=== PATIENT | female | born 1970 | race Caucasian/White ===

== ENCOUNTER → 2017-11-05 | Outpatient (CLI) | payer OTHER ==
--- NOTE | 2017-11-05 19:48 | MR ---
EXAMINATION TYPE: MR shoulder RT wo con DATE OF EXAM: 11/05/2017 COMPARISON: Plain film 09/20/2017 HISTORY: Fell on Right Shoulder Sep 2017, Pt breathing heavy motion on scans TECHNIQUE: Multiplanar, multisequence imaging of the right shoulder is performed without contrast. FINDINGS: There is motion on the exam. Rotator Cuff: Some increased signal within the rotator cuff near its insertion may be due to tendinos is Acromioclavicular Joint: Hypertrophic changes present causing some mass effect on the musculotendinou s junction of supraspinatus Glenohumeral Joint: Intact. Labrum: The labrum appears grossly intact given limitation of non-arthrogram study. Biceps Tendon: The long head of biceps is in normal location within bicipital groove, some fluid is p resent along the tendon. Bone marrow signal: Pseudocysts are present within the humeral head. Other: There is a distal acromial spur present, distal acromion is downturned. Fluid signal present i n the subacromial subdeltoid bursa. IMPRESSION: There are limitations in exam due to motion, correlate for impingement. No ashley rotator cuff tear.
== END | disposition home or self-care (01) ==
LOC: RADMRIMAIN 18:54
PROVIDERS: ATTEND Orthopaedic Surgery
DX: M25.511 Pain in right shoulder (principal)

== ENCOUNTER 2021-01-14 18:47 | Emergency (ER) | payer BC ==
[2021-01-14 19:25] VITALS: TEMP 102.4
[2021-01-14] MEDS ORDERED: IBUPROFEN 800 MG TAB PO STA (19:55)
[2021-01-14] MEDS ORDERED: ACETAMINOPHEN TAB 500 MG TAB PO STA (19:55)
[2021-01-14] MEDS ORDERED: dexAMETHasone 2 MG TAB PO STA (19:55)
--- NOTE | 2021-01-14 20:30 | ED ---
Fever HPI - General Chief Complaint: Fever Stated Complaint: Covid+, EROS Time Seen by Provider: 01/14/21 19:55 Source: patient Mode of arrival: ambulatory Limitations: no limitations - History of Present Illness Initial Comments: Patient presents with a cough. She is covid positive. She has no chest or belly or back pain. She has no nausea or vomiting. She doesn't fever. She has no weakness. She has no lightheadedness. She has no dizziness. She has no neck pain or stiffness. She does not feel short of breath. She has no palpitations. She has no swelling in the arms or legs. - Related Data Allergies Allergy/AdvReac Type Severity Reaction Status Date / Time No Known Allergies Allergy Verified 01/14/21 19:24 Review of Systems ROS Statement: Those systems with pertinent positive or pertinent negative responses have been documented in the HPI. ROS Other: All systems not noted in ROS Statement are negative. Past Medical History Past Medical History: Diabetes Mellitus, Hypertension Additional Past Medical History / Comment(s): covid 01/26, ectopic-lt History of Any Multi-Drug Resistant Organisms: None Reported Past Surgical History: Tubal Ligation Past Psychological History: No Psychological Hx Reported Smoking Status: Never smoker Past Alcohol Use History: None Reported Past Drug Use History: None Reported General Exam Limitations: no limitations General appearance: alert, in no apparent distress Head exam: Present: atraumatic, normocephalic, normal inspection Eye exam: Present: normal appearance, PERRL, EOMI. Absent: scleral icterus, conjunctival injection, periorbital swelling ENT exam: Present: normal exam, mucous membranes moist Neck exam: Present: normal inspection. Absent: tenderness, meningismus, lymphadenopathy Respiratory exam: Present: normal lung sounds bilaterally. Absent: respiratory distress, wheezes, rales, rhonchi, stridor Cardiovascular Exam: Present: regular rate, normal rhythm, normal heart sounds. Absent: systolic murmur, diastolic murmur, rubs, gallop, clicks GI/Abdominal exam: Present: soft, normal bowel sounds. Absent: distended, tenderness, guarding, rebound, rigid Extremities exam: Present: normal inspection, full ROM, normal capillary refill. Absent: tenderness, pedal edema, joint swelling, calf tenderness Back exam: Present: normal inspection Neurological exam: Present: alert, oriented X3, CN II-XII intact Psychiatric exam: Present: normal affect, normal mood Skin exam: Present: warm, dry, intact, normal color. Absent: rash Course Vital Signs 01/14/21 19:21 Temperature 102.4 F H Pulse Rate 119 H Respiratory 22 Rate Blood Pressure 133/90 O2 Sat by Pulse 95 Oximetry Medical Decision Making - Medical Decision Making Patient presents with Covid. She is given Decadron and IV immunoglobulin therapy. Patient is feeling better. Her vital signs are improved. She is stable for discharge. Disposition Clinical Impression: COVID-19 Disposition: HOME SELF-CARE Condition: Good Instructions (If sedation given, give patient instructions): Coronavirus Disease 2019 (COVID-19) Is patient prescribed a controlled substance at d/c from ED?: No Referrals: Lu Gardiner DO [Primary Care Provider] - 1-2 days
--- NOTE | 2021-01-14 21:12 | XR ---
EXAMINATION TYPE: XR chest 2V DATE OF EXAM: 01/14/2021 COMPARISON: None INDICATION: Dyspnea short of breath headache fever TECHNIQUE: Frontal and lateral views of the chest are obtained. FINDINGS: The heart size is normal. The pulmonary vasculature is normal. Scattered mild bilateral lung infiltrates are present. These are nonspecific. Correlate for subsegmen joaquina atelectasis and atypical pneumonia.. IMPRESSION: 1. Nonspecific mild increase in diffuse lung markings, correlate for atypical pneumonia and subsegmen joaquina atelectasis.
[2021-01-14] MEDS ORDERED: BAMLANIVIMAB (EUA) 700 MG, ETESEVIMAB (EUA) 1,400 MG in SODIUM CHLORIDE 0.9% 50 ML IVPB ONE (21:15)
[2021-01-14] MEDS ORDERED: SODIUM CHLORIDE 0.9% 50 ML IVPB ONE (21:30)
[2021-01-14 22:23] VITALS: RESP 17
[2021-01-14 22:26] VITALS: BP 104/64; PULSE 64
== END 2021-01-14 23:03 | disposition home or self-care (01) ==
LOC: EC 18:47
DX: U07.1 COVID-19 (principal); I10 Essential (primary) hypertension; E11.9 Type 2 diabetes mellitus without complications
CPT/HCPCS: 71046; 99284; 96365; J8540; Q0245

== ENCOUNTER 2024-11-09 13:45 | Emergency (ER) | payer BC, MEDICAID ==
[2024-11-09 13:49] VITALS: RESP 16
--- NOTE | 2024-11-09 14:33 | ED ---
Back Pain HPI - General Chief Complaint: Back Pain/Injury Stated Complaint: low back pain Time Seen by Provider: 11/09/24 14:02 Source: patient, RN notes reviewed Limitations: no limitations - History of Present Illness Initial Comments: This is a 54-year-old female presenting with left mid back pain (07/17) since last night. Patient states she was on the couch and began having "searing" back pain in her back after movement/twisting, hearing a "pop" at the time. Endorses nausea/vomiting attributed to the pain, pain with movement as well as with inhalation. Denies radiculopathy, paresthesia, urinary symptoms, fever, chills. MD Complaint: back pain Onset/Timin -: days(s) Similar Symptoms Previously: No Place: home Radiation: none Severity scale (1-10): 10 Quality: burning Consistency: constant Improves With: immobilization Worsens With: movement, deep breaths/cough Context: turning/twisting Associated Symptoms: denies other symptoms - Related Data Allergies Allergy/AdvReac Type Severity Reaction Status Date / Time No Known Allergies Allergy Verified 11/09/24 13:49 Review of Systems ROS Statement: Those systems with pertinent positive or pertinent negative responses have been documented in the HPI. ROS Other: All systems not noted in ROS Statement are negative. Past Medical History Past Medical History: Diabetes Mellitus, Hypertension Additional Past Medical History / Comment(s): covid 01/26, ectopic-lt History of Any Multi-Drug Resistant Organisms: None Reported Past Surgical History: Tubal Ligation Past Psychological History: No Psychological Hx Reported Smoking Status: Never smoker Past Alcohol Use History: None Reported Past Drug Use History: None Reported General Exam Limitations: no limitations General appearance: alert, in no apparent distress Head exam: Present: atraumatic, normocephalic, normal inspection Eye exam: Present: normal appearance, PERRL, EOMI. Absent: scleral icterus, conjunctival injection, periorbital swelling ENT exam: Present: normal exam, mucous membranes moist Neck exam: Present: normal inspection. Absent: tenderness, meningismus, lymphadenopathy Respiratory exam: Present: normal lung sounds bilaterally. Absent: respiratory distress, wheezes, rales, rhonchi, stridor Cardiovascular Exam: Present: regular rate, normal rhythm, normal heart sounds. Absent: systolic murmur, diastolic murmur, rubs, gallop, clicks GI/Abdominal exam: Present: soft, normal bowel sounds. Absent: distended, tenderness, guarding, rebound, rigid Extremities exam: Present: normal inspection, full ROM, normal capillary refill. Absent: tenderness, pedal edema, joint swelling, calf tenderness Back exam: Present: normal inspection, tenderness, CVA tenderness (L), paraspinal tenderness (Positive left thoracic paraspinal tenderness over T8/9 rib without obvious crepitus, ecchymosis or tenting). Absent: CVA tenderness (R), vertebral tenderness Neurological exam: Present: alert, oriented X3, CN II-XII intact Psychiatric exam: Present: normal affect, normal mood Skin exam: Present: warm, dry, intact, normal color. Absent: rash Course Vital Signs 11/09/24 13:47 Temperature 98.6 F Pulse Rate 111 H Respiratory 16 Rate Blood Pressure 179/113 O2 Sat by Pulse 97 Oximetry Medical Decision Making - Medical Decision Making Was pt. sent in by a medical professional or institution (, PA, [employer], urgent care, hospital, or halfway...) When possible be specific @ -[No] Did you speak to anyone other than the patient for history (EMS, parent, family, police, friend...)? What history was obtained from this source @ -[No] Did you review nursing and triage notes (agree or disagree)? Why? @ -[I reviewed and agree with nursing and triage notes] Were old charts reviewed (outside hosp., previous admission, EMS record, old EKG, old radiological studies, urgent care reports/EKG's, halfway records)? Report findings @ -[No old charts were reviewed] Differential Diagnosis (chest pain, altered mental status, abdominal pain women, abdominal pain men, vaginal bleeding, weakness, fever, dyspnea, syncope, headache, dizziness, GI bleed, back pain, seizure, CVA, palpatations, mental health, musculoskeletal)? @ -Differential Musculoskeletal Muscular strain, contusion, ligament sprain, fracture, arthritis, septic arthritis, bursitis, cellulitis, muscle spasm, nerve compression, DVT, arterial occlusion, herpes zoster, electrolyte abnormality, tumor.... This is not meant to be in all inclusive list EKG interpreted by me (3pts min.). @ -Not done X-rays interpreted by me (1pt min.). @ -[None done] CT interpreted by me (1pt min.). @ -[None done] U/S interpreted by me (1pt. min.). @ -[None done] What testing was considered but not performed or refused? (CT, X-rays, U/S, labs)? Why? @ -[None] What meds were considered but not given or refused? Why? @ -[None] Did you discuss the management of the patient with other professionals (professionals i.e. , PA, [employer], lab, RT, psych nurse, social science instructor, net application support specialist, teacher, purchasing officer, immigration case worker)? Give summary @ -[No] Was smoking cessation discussed for >3mins.? @ -[No] Was critical care preformed (if so, how long)? @ -[No] Were there social determinants of health that impacted care today? How? (Homelessness, low income, unemployed, alcoholism, drug addiction, transportation, low edu. Level, literacy, decrease access to med. care, usp, rehab)? @ -[No] Was there de-escalation of care discussed even if they declined (Discuss DNR or withdrawal of care, Hospice)? DNR status @ -[No] What co-morbidities impacted this encounter? (DM, HTN, Smoking, COPD, CAD, Cancer, CVA, ARF, Chemo, Hep., AIDS, mental health diagnosis, sleep apnea, morbid obesity)? @ -[None] Was patient admitted / discharged? Hospital course, mention meds given and route, prescriptions, significant lab abnormalities, going to OR and other pertinent info. @ -[hospital course] Undiagnosed new problem with uncertain prognosis? @ -[No] Drug Therapy requiring intensive monitoring for toxicity (Heparin, Nitro, Insulin, Cardizem)? @ -[No] Were any procedures done? @ -[No] Diagnosis/symptom? @ -[default] Acute, or Chronic, or Acute on Chronic? @ -Acute Uncomplicated (without systemic symptoms) or Complicated (systemic symptoms)? @ -Uncomplicated Side effects of treatment? @ -[No] Exacerbation, Progression, or Severe Exacerbation? @ -[No] Poses a threat to life or bodily function? How? (Chest pain, USA, PA, pneumonia, PE, COPD, DKA, ARF, appy, cholecystitis, CVA, Diverticulitis, Homicidal, Suicidal, threat to staff... and all critical care pts) @ -[No] - Lab Data Lab Results 11/09/24 Range/Units 15:03 Urine Color Colorless Urine Appearance Clear (Clear) Urine pH 6.5 (5.0-8.0) Ur Specific [place] 1.007 (1.001-1.035) Urine Protein Negative (Negative) Urine Glucose (UA) Negative (Negative) Urine Ketones Negative (Negative) Urine Blood Negative (Negative) Urine Nitrite Negative (Negative) Urine Bilirubin Negative (Negative) Urine Urobilinogen <2.0 (<2.0) mg/dL Ur Leukocyte Esterase Moderate H (Negative) Urine RBC 4 (0-5) /hpf Urine WBC 5 (0-5) /hpf Ur Squamous Epith Cells 5 H (0-4) /hpf Urine Bacteria Rare H (None) /hpf Urine Mucus Rare H (None) /hpf Disposition Clinical Impression: Intercostal muscle strain Disposition: HOME SELF-CARE Condition: Good Instructions (If sedation given, give patient instructions): Acute Low Back Pain (ED) Additional Instructions: Follow-up with PCP for ongoing pain. Is patient prescribed a controlled substance at d/c from ED?: No Referrals: Lu Gardiner DO [Primary Care Provider] - 1-2 days Time of Disposition: 16:45
[2024-11-09] MEDS: KETOROLAC 15 MG/ML 1 ML VIAL IVP STA (14:48)
[2024-11-09] MEDS: methylPREDNISolone SOD SUCCI 125 MG/2 ML VIAL IV STA (14:51)
[2024-11-09 15:15] LABS: Appearance,Urine Clear (Clear); Bacteria,Urine Rare /hpf; Bilirubin,Urine Negative (Negative); Blood,Urine Negative (Negative); Color,Urine Colorless; Glucose,Urine (UA) Negative (Negative); Ketones,Urine Negative (Negative); Leukocyte Esterase,Urine Moderate (Negative); Mucus,Urine Rare /hpf; Nitrite,Urine Negative (Negative); PH, Urine 6.5 (5.0-8.0); Protein,Urine Negative (Negative); RBC,Urine 4 /hpf (0-5); Specific Gravity,Urine 1.007 (1.001-1.035); Squamous Epithelial Cell,Urine 5 /hpf (0-4); Urobilinogen,Urine <2.0 mg/dL (<2.0); WBC,Urine 5 /hpf (0-5)
--- NOTE | 2024-11-09 15:32 | XR ---
EXAMINATION TYPE: XR ribs LT w pa chest xray DATE OF EXAM: 11/09/2024 3:20 PM COMPARISON: Previous chest radiograph 01/14/2021. CLINICAL INDICATION: Female, 54 years old with history of "Pop" followed by left dorsal rib pain; [facility] TECHNIQUE: XR ribs LT w pa chest xray; Frontal and oblique views of the ribs with frontal chest radio graph. FINDINGS: The ribs have a normal appearance. No evidence of fracture. Overall, the lungs are clear. The cardiac silhouette is normal in size. The remaining osseous structures are intact. Possible azy gous lobe and fissure. No acute focal consolidation. No pleural effusion or pneumothorax. IMPRESSION: 1. No acute cardiopulmonary process. 2. No acute osseous pathology. [facility], , 11/09/2024 3:30 PM
[2024-11-09] MEDS: HYDROmorphone 1 MG/ML 1 ML SYRINGE IVP STA (16:18)
[2024-11-09] MEDS: ORPHENADRINE 30 MG/ML 2 ML VIAL IM STA (16:19)
[2024-11-09] MEDS: ACET/COD 300 MG/30 MG STARTER PACK 6 TAB BTL PO STA (17:04)
[2024-11-09 17:12] VITALS: BP 161/91; PULSE 97; TEMP 98.3
== END 2024-11-09 17:12 | disposition home or self-care (01) ==
LOC: EC 13:45
DX: S29.011A Strain of muscle and tendon of front wall of thorax, initial encounter (principal); X50.1XXA Overexertion from prolonged static or awkward postures, initial encounter
CPT/HCPCS: 81001; 71101; 99284; 96374; 96375 ×2; J1171; J1885; J2919